=== PATIENT | male | born 1990 | race Caucasian/White ===

== ENCOUNTER 2022-08-26 18:46 | Emergency (ER) | payer SELFPAY ==
[~2022-08-26] VITALS: Ht 157.5 cm; Wt 58.0 kg
[2022-08-26 19:06] VITALS: BP 117/87
== END 2022-08-26 23:18 | disposition home or self-care (01) ==
LOC: ER 19:01
DX: S63.502A Unspecified sprain of left wrist, initial encounter (principal); W22.8XXA Striking against or struck by other objects, initial encounter; Y93.89 Activity, other specified; Y92.89 Other specified places as the place of occurrence of the external cause; Y99.8 Other external cause status
CPT/HCPCS: 29125; 73090; 73100; 73120; 99284